=== PATIENT | female | born 1985 | race Caucasian/White ===

== ENCOUNTER → 2020-04-14 | Outpatient (CLI) | payer OTHER ==
[~2020-04-14] MED LIST: AVIANE 0.02 MG-1 TAB PO; DHEA 10 MG TAB1 EACH PO; FRANKINCENSE PO; MULTI VITAMINS1 TAB PO; NORCO 325 MG-51 TAB PO; NORCO 325 MG-7.1 TAB PO; PERCOCET 325 MG1 TA2 PO; PRIL40 PO; PRILOSEC 20MG20 MG PO; PROBIOTIC FORMU1 CAP PO; XANAX .25M0.25 MG/TA PO; ZOFRAN ODT4 MG PO; [UNRECOGNIZED DRUG - CODE] PO; [UNRECOGNIZED DRUG - OTHER] PO
== END ==
LOC: COL.RAD 08:43
DX: G95.9 Disease of spinal cord, unspecified (principal)
CPT/HCPCS: A9585

== ENCOUNTER 2020-04-19 08:28 | Outpatient (RCR) | payer OTHER ==
[2020-04-17 08:42] VITALS: BP 133/63; PULSE 97; TEMP 98.7
[2020-04-18 08:50] VITALS: BP 118/77; PULSE 111; TEMP 97.4
[2020-04-18 09:53] VITALS: BP 118/82; PULSE 84
[~2020-04-19] VITALS: Ht 160 cm; Wt 101.0 kg
[~2020-04-19 08:28] MED LIST changes: +MASON NATURAL S1 CAP PO; -MULTI VITAMINS1 TAB PO
[2020-04-19 08:58] VITALS: BP 110/62; PULSE 86; TEMP 98.5
[2020-04-20 08:45] VITALS: BP 133/68; PULSE 78; TEMP 98.2
[2020-04-21 09:48] VITALS: BP 106/72; PULSE 98; TEMP 99.2
[2020-04-23] MEDS ORDERED: BIOCLEANSE PO (10:03)
[2020-04-23] MEDS ORDERED: OMEGA-3 1000 MG1 CAP PO (10:04)
== END 2020-04-21 11:15 ==
LOC: EUO 08:30
DX: S14.129A Central cord syndrome at unspecified level of cervical spinal cord, initial encounter (principal); R29.818 Other symptoms and signs involving the nervous system
CPT/HCPCS: J2930; J7050

== ENCOUNTER 2020-04-27 12:19 | Outpatient (CLI) | payer OTHER ==
[~2020-04-27] VITALS: Ht 160 cm; Wt 98.0 kg
[2020-04-27] VITALS (7 sets, daily range): BP systolic 118–138; BP diastolic 73–81; PULSE 77–92
[~2020-04-27 12:19] MED LIST changes: +BIOCLEANSE PO; +OMEGA-3 1000 MG1 CAP PO
[2020-04-27 14:15] LABS: CSF APPEARANCE CLEAR; CSF COLOR COLORLESS; CSF RBC 131 /mm3 (0-0)
[2020-04-27 14:22] LABS: GLUCOSE,CSF 61 mg/dL (40-70); TOTAL PROTEIN,CSF 49 mg/dL (15-45)
[2020-04-27 14:46] LABS: CSF MONONUCLEAR 89 % (70-100); CSF POLYMORPHONUCLEAR 11 % (0-6)
--- NOTE | 2020-04-27 15:28 | NUR ---
Discharge instructions given to pt.pt verbalizes understanding.
--- NOTE | 2020-04-27 15:41 | NUR ---
Pt escored out by this nurse.
[2020-04-30 14:39] LABS: ALBUMIN CSF 25.2 mg/dL (<=27.0)
[2020-04-30 14:47] LABS: CSF IGG/ALBUMIN 0.12 (<=0.21)
[2020-04-30 15:19] LABS: CSF SYNTHESIS RATE 5.09 mg/24 h (<=12); CSF-IGG INDEX 0.75 (<=0.85); IGG/ALBUMIN SERUM 0.16 (<=0.40)
[2020-05-06] MEDS ORDERED: [UNRECOGNIZED DRUG - OTHER] PO (16:42)
[2020-05-06] MEDS ORDERED: N ACETYL CYSTEINE PO (16:45)
[2020-05-06] MEDS ORDERED: ACETYL-L-CARNITINE PO (16:46)
[2020-05-06] MEDS ORDERED: LIVER SUPPORT PO (16:47)
== END 2020-04-27 15:42 | disposition home or self-care (01) ==
LOC: COL.RAD 12:19
PROVIDERS: Psychiatry & Neurology Neurology
DX: R29.818 Other symptoms and signs involving the nervous system (principal); R90.82 White matter disease, unspecified; S14.129A Central cord syndrome at unspecified level of cervical spinal cord, initial encounter

== ENCOUNTER 2020-05-01 16:22 | Day surgery (SDC) | payer OTHER ==
[~2020-05-01] VITALS: Ht 160 cm; Wt 97.7 kg
[2020-05-01 16:46] VITALS: BP 129/72; PULSE 90; TEMP 98.5
[2020-05-01 17:00] VITALS: BP 123/66; PULSE 83
--- NOTE | 2020-05-01 17:00 | NUR ---
VSS. PROCEDURE COMPLETED BY ANSETHESIA. PATIENT LAYS DOWN ON CART. PATIENT DENIES DISCOMFORT AND NAUSEA.
--- NOTE | 2020-05-01 17:06 | NUR ---
Pt to PACU @ 1625 for epidural blood patch procedure. Pt assessment and interview complete. Consent signed. No sedation for procedure, HCG not needed. Dontrell Nascimento [employer] assisted with procedure. A 20 guage IV inserted into right AC and 20mls of blood drawn for [employer]. Hemostasis noted and guaze/tape placed. Vs remain stable during procedure.
[2020-05-01 17:15] VITALS: BP 112/79; PULSE 90
--- NOTE | 2020-05-01 17:25 | NUR ---
VSS. PATIENT SITS UP ON CHAIR AND DRINKS WATER WITHOUT PROBLEMS. WARM BLANKETS PROVIDED.
[2020-05-01 17:30] VITALS: BP 125/99; PULSE 84
--- NOTE | 2020-05-01 17:30 | NUR ---
VSS. PATIENT CONTINUES SITTING IN CHAIR. PATIENT DENIES RETURN OF HEADACHE. DRINKING ICE WATER.
[2020-05-01 17:40] VITALS: BP 118/92; PULSE 92
--- NOTE | 2020-05-01 17:40 | NUR ---
VSS. DISCHARGE INSTRUCTIONS GIVEN VERBAL AND WRITTEN. QUESTIONS ANSWERED AND PATIENT VOICED UNDERSTANDING. PATIENT CALLS ON PHONE TO PICKUP AT ER ENTRANCE. [id number] PATIENT TRANSPORTED PER WHEEL CHAIR TO ER ENTRANCE AND IS DRIVING CAR.
[2020-05-06] MEDS ORDERED: [UNRECOGNIZED DRUG - OTHER] PO (16:42)
[2020-05-06] MEDS ORDERED: N ACETYL CYSTEINE PO (16:45)
[2020-05-06] MEDS ORDERED: ACETYL-L-CARNITINE PO (16:46)
[2020-05-06] MEDS ORDERED: LIVER SUPPORT PO (16:47)
== END 2020-05-01 17:47 | disposition home or self-care (01) ==
LOC: SDCO 16:22
DX: G97.1 Other reaction to spinal and lumbar puncture (principal)

== ENCOUNTER 2020-05-10 08:00 | Outpatient (RCR) | payer OTHER ==
[2020-05-06 16:47] VITALS: BP 121/78; PULSE 112; TEMP 99.2
[2020-05-06 17:08] VITALS: BP 119/57; PULSE 96; TEMP 98.6
[2020-05-07 12:37] VITALS: BP 140/84; PULSE 122; TEMP 99.5
[2020-05-08 12:01] VITALS: BP 142/79; PULSE 102; TEMP 98.4
[2020-05-09 09:19] VITALS: BP 103/63; PULSE 72; TEMP 97.5
[~2020-05-10 08:00] MED LIST changes: +ACETYL-L-CARNITINE PO; +LIVER SUPPORT PO; +N ACETYL CYSTEINE PO; +[UNRECOGNIZED DRUG - OTHER] PO
[2020-05-10 08:45] VITALS: BP 107/73; PULSE 75; TEMP 98
== END 2020-05-10 09:47 | disposition home or self-care (01) ==
LOC: EUO 08:00
DX: G35 Multiple sclerosis (principal)
CPT/HCPCS: J2930; J7050

== ENCOUNTER → 2020-12-07 | Outpatient (CLI) | payer OTHER | LOC: COL.RAD 12:01 | DX: G37.9 Demyelinating disease of central nervous system, unspecified (principal); R59.0 Localized enlarged lymph nodes | CPT/HCPCS: A9585 ==